=== PATIENT | male | born 1990 | race Caucasian/White ===

== ENCOUNTER 2020-07-28 08:54 | Outpatient (REF) | payer OTHER, MEDICAID, SELFPAY ==
--- NOTE | 2020-07-28 09:08 | XR_ITS ---
EXAMINATION: THORACIC AND LUMBAR SPINE X-RAY CLINICAL INFORMATION: Pain COMPARISON: Previous chest x-ray July 2019 TECHNIQUE: 3 views of the thoracic spine and 5 views of the lumbar spine FINDINGS: Thoracic spine: There is mild curvature of the lower thoracic spine to the right with apex at T10-T11. Bone alignment is otherwise normal. No fracture or dislocation is seen. Disc spaces are normal. Paraspinal soft tissues are normal. Lumbar spine: Bone alignment is normal. No fracture or dislocation is seen. The facet joints are normal. Disc spaces are normal. XR/XR thoracic spine 3V IMPRESSION: Unremarkable exam.
--- NOTE | 2020-07-28 09:08 | XR_ITS ---
EXAMINATION: THORACIC AND LUMBAR SPINE X-RAY CLINICAL INFORMATION: Pain COMPARISON: Previous chest x-ray July 2019 TECHNIQUE: 3 views of the thoracic spine and 5 views of the lumbar spine FINDINGS: Thoracic spine: There is mild curvature of the lower thoracic spine to the right with apex at T10-T11. Bone alignment is otherwise normal. No fracture or dislocation is seen. Disc spaces are normal. Paraspinal soft tissues are normal. Lumbar spine: Bone alignment is normal. No fracture or dislocation is seen. The facet joints are normal. Disc spaces are normal. XR/XR lumbar spine 4V min IMPRESSION: Unremarkable exam.
== END 2020-07-28 08:55 | disposition home or self-care (01) ==
LOC: HO.XRAY 08:54
PROVIDERS: PCP Emergency Medicine; Visit Provider Emergency Medicine
DX: M54.6 Pain in thoracic spine (principal)
CPT/HCPCS: 72072; 72110

== ENCOUNTER 2023-10-30 09:50 | Outpatient (REF) | payer SELFPAY ==
--- NOTE | ~2023-10-30 | XR_ITS ---
EXAMINATION: XR KNEE, RIGHT CLINICAL INFORMATION: Knee pain COMPARISON: None available. TECHNIQUE: AP view of both knees. Also, sunrise view and lateral view of right knee. FINDINGS: The AP standing view shows normal alignment at both knees. The joint spaces are maintained. The sunrise and lateral views of the right knee show normal appearance of the patellofemoral and tibiofemoral joints. No arthritic deformity or joint effusion. XR/XR knee RT 3V IMPRESSION: Normal right knee.
== END 2023-10-30 09:51 | disposition home or self-care (01) ==
LOC: HO.HOSX 09:50
PROVIDERS: Visit Provider Orthopaedic Surgery
DX: M25.461 Effusion, right knee (principal); M25.561 Pain in right knee
CPT/HCPCS: 73562

== ENCOUNTER 2023-10-30 09:53 | Outpatient (AMB) | payer SELFPAY ==
[2023-10-30 10:11] VITALS: BMI 20.7
--- NOTE | 2023-10-30 10:11 | A.OFFVIS_ITS ---
Vital Signs 10/30/23 10:11 Height 5 ft 9 in Weight 140 lb BMI 20.7 Intake Visit Reasons: inpatient services rn-Rt knee pain Allergies No Known Allergies Allergy (Unverified 10/30/23 10:13) HPI HPI inpatient services rn-Rt knee pain: Details: Memo is a 33 year old male who presents today as a new patient with complaints of right knee pain. Patient reports that he was at work on 07/24/23 when he twisted the right knee. He has pain in the lateral and posterior aspects of the knee. Originally he was given a knee brace, PT order and is currently out of work . Currently he states that the knee feels unstable, is comfortable at rest but when he starts with activity his pain returns. PENDING SALE TO [facility] Social History (Updated 10/30/23 @ 10:14 by Fanta Fernandez [facility]) Current occupational status: employed Current occupation: [employer] Physical Exam Vital Signs: BMI result Body Mass Index 20.7 Extrem Other: 0-120 deg motion mild effusion + medial Steinmen's Stable to v/v stress Results Reviewed Results Reviewed: I personally reviewed relevant radiographs.\ Nl knee radiographs Assessment & Plan Assessment & Plan (1) Knee effusion, right: Code(s): M25.461 - Effusion, right knee Category: Medical Plan: Right knee effusion with stiffness and discomfort that has not improved in ~3 months. MRI ordered to assess. Orders: Orders XR knee standing BI 10/30/23 M25.569 - Pain in unspecified knee MR knee RT wo con Today M25.461 - Effusion, right knee Coding Level of Care Code New Pt Level 4 (50012) Diagnoses Knee effusion, right M25.461
== END 2023-10-30 10:33 | disposition home or self-care (01) ==
PROVIDERS: PCP Emergency Medicine; Visit Provider Orthopaedic Surgery
DX: M25.461 Effusion, right knee (principal)
CPT/HCPCS: 99203